=== PATIENT | male | born 1970 | race Caucasian/White ===

== ENCOUNTER 2020-12-14 04:55 | Inpatient (IN) ==
[2020-12-14] MEDS ORDERED: DOCUSATE SODIUM 100 MG CAPSULE PO PRN (07:37)
[2020-12-14] MEDS ORDERED: ONDANSETRON 4 MG/2 ML VIAL IV PRN (07:37)
[2020-12-14] MEDS ORDERED: GLUCAGON 1 MG VIAL IM PRN (07:37)
[2020-12-14] MEDS ORDERED: AZITHROMYCIN INJ 500 MG in SODIUM CHLORIDE 0.9% 250 ML IV ONE (07:37)
[2020-12-14] MEDS ORDERED: MELATONIN 3 MG TABLET PO PRN (07:37)
[2020-12-14] MEDS ORDERED: DEXTROSE 50% 25 GM/50 ML VIAL IV PRN (07:37)
[2020-12-14] MEDS ORDERED: guaiFENesin/DM ER 600-30 MG TABLET PO PRN (07:37)
[2020-12-14] MEDS ORDERED: ACETAMINOPHEN 325 MG TABLET PO PRN (07:37)
[2020-12-14 08:33] LABS: ABG Base Excess -0.4 MMOL/L (-2.5-2.5); ABG HCO3 24.1 MMOL/L (20-26); ABG Oxygen Saturation 97.8 % (95-100); ABG PCO2 30.6 MM HG (35-48); ABG PH 7.467 (7.35-7.45); ABG PO2 99.7 MM HG (80-95); ABG TCO2 18.6 MMOL/L (23-27)
[2020-12-14] MEDS: ENOXAPARIN 40 MG/0.4 ML SYRINGE SUBCUT SCH (09:35)
[2020-12-14] MEDS: CHOLECALCIFEROL 1,000 UNIT TABLET PO SCH (09:36)
[2020-12-14] MEDS: DEXAMETHASONE 4 MG/1 ML VIAL IV SCH (09:36)
[2020-12-14] MEDS: ZINC GLUCONATE 50 MG TABLET PO SCH (09:36)
[2020-12-14] MEDS: CETIRIZINE 10 MG TABLET PO SCH (09:36)
[2020-12-14] MEDS: PANTOPRAZOLE 40 MG TABLET PO SCH (09:36)
[2020-12-14] MEDS: ASCORBIC ACID 500 MG TABLET PO SCH ×2 (09:37→21:07)
[2020-12-14] MEDS: FAMOTIDINE 20 MG TABLET PO SCH ×2 (10:00→21:07)
[2020-12-14 10:22] LABS: Ferritin 2563.9 ng/mL (26-388)
[2020-12-14] MEDS: ALBUTEROL 2.5 MG/3 ML NEB RESP TX SCH ×2 (17:44→19:22)
[2020-12-15] MEDS: ALBUTEROL 2.5 MG/3 ML NEB RESP TX SCH ×2 (03:50→04:02)
[2020-12-15 04:17] LABS: Basophils % 0.4 % (0.0-0.8); Eosinophils % 0.1 % (0.00-10.9); Hematocrit 42.6 VOL% (42.0-52.0); Hemoglobin 14.5 GM/DL (14.0-18.0); Immature Granulocytes % 7.1 %; Immature Granulocytes Absolute 0.74 #; Lymphocytes # 0.7 10*3/uL (1.4-4.0); Lymphocytes % 6.9 % (21.2-54.2); Mean Corpuscular Volume 88.4 FL (87-102); Mean Platelet Volume 9.1 FL (9.6-12.0); Monocytes % 6.9 % (1.7-12.7); Neutrophils % 78.6 % (38.7-73.9); Platelet Count 215 T/CUMM (130-400); Red Blood Count 4.82 MC/CUMM (3.8-5.5); Red Cell Distribution Width 13.3 % (9.3-17.3); White Blood Count 10.4 T/CUMM (4-12)
[2020-12-15 04:55] LABS: Lymphocytes 8 % (20-55); Microcytosis 1+; Segmented Neutrophils 87 % (50-85); Total Cells Counted 100
[2020-12-15 04:56] LABS: Platelet Estimate Normal
[2020-12-15 06:18] LABS: Calcium 8.3 MG/DL (8.5-10.1); Osmolality,Calculated 276.8 MOS/KG (273-304); Potassium 4.3 MMOL/L (3.5-5.1)
[2020-12-15 06:31] LABS: Sedimentation Rate-Westergren 51 MM/HR (0-15)
[2020-12-15] MEDS: PANTOPRAZOLE 40 MG TABLET PO SCH (08:20)
[2020-12-15] MEDS: ENOXAPARIN 40 MG/0.4 ML SYRINGE SUBCUT SCH (08:20)
[2020-12-15] MEDS: ASCORBIC ACID 500 MG TABLET PO SCH ×2 (08:21→21:16)
[2020-12-15] MEDS: CETIRIZINE 10 MG TABLET PO SCH (08:21)
[2020-12-15] MEDS: CHOLECALCIFEROL 1,000 UNIT TABLET PO SCH (08:21)
[2020-12-15] MEDS: FAMOTIDINE 20 MG TABLET PO SCH ×2 (08:21→21:17)
[2020-12-15] MEDS: ZINC GLUCONATE 50 MG TABLET PO SCH (08:22)
[2020-12-15] MEDS: DEXAMETHASONE 4 MG/1 ML VIAL IV SCH (08:22)
[2020-12-15] MEDS: ALBUTEROL INHALER 18 GM INH SCH ×3 (09:16→21:18)
[2020-12-16] MEDS: ALBUTEROL INHALER 18 GM INH SCH ×4 (03:55→20:43)
[2020-12-16 05:37] LABS: Basophils # 0.1 10*3/uL (0.0-0.2); Basophils % 0.4 % (0.0-0.8); Eosinophils % 0.2 % (0.00-10.9); Hematocrit 42.3 VOL% (42.0-52.0); Hemoglobin 14.6 GM/DL (14.0-18.0); Immature Granulocytes % 7.4 %; Immature Granulocytes Absolute 0.93 #; Lymphocytes # 0.9 10*3/uL (1.4-4.0); Lymphocytes % 6.8 % (21.2-54.2); Mean Corpuscular HGB Conc 34.5 GM/DL (32-36); Mean Corpuscular Volume 87.4 FL (87-102); Mean Platelet Volume 9.3 FL (9.6-12.0); Monocytes % 6.2 % (1.7-12.7); Platelet Count 251 T/CUMM (130-400); Red Blood Count 4.84 MC/CUMM (3.8-5.5); Red Cell Distribution Width 13.1 % (9.3-17.3); White Blood Count 12.5 T/CUMM (4-12)
[2020-12-16 06:20] LABS: Calcium 8.3 MG/DL (8.5-10.1); Osmolality,Calculated 281.5 MOS/KG (273-304); Potassium 4.5 MMOL/L (3.5-5.1)
[2020-12-16 06:35] LABS: Band Neutrophils 4 % (0-10); Lymphocytes 9 % (20-55); Microcytosis 1+; Segmented Neutrophils 77 % (50-85); Total Cells Counted 100
[2020-12-16 06:37] LABS: Platelet Estimate Normal
[2020-12-16] MEDS: ENOXAPARIN 40 MG/0.4 ML SYRINGE SUBCUT SCH (09:01)
[2020-12-16] MEDS: ZINC GLUCONATE 50 MG TABLET PO SCH (09:01)
[2020-12-16] MEDS: ASCORBIC ACID 500 MG TABLET PO SCH ×2 (09:01→20:43)
[2020-12-16] MEDS: CHOLECALCIFEROL 1,000 UNIT TABLET PO SCH (09:01)
[2020-12-16] MEDS: FAMOTIDINE 20 MG TABLET PO SCH ×2 (09:01→20:42)
[2020-12-16] MEDS: PANTOPRAZOLE 40 MG TABLET PO SCH (09:02)
[2020-12-16] MEDS: CETIRIZINE 10 MG TABLET PO SCH (09:02)
[2020-12-16] MEDS: DEXAMETHASONE 4 MG/1 ML VIAL IV SCH (09:02)
[2020-12-17] MEDS: ALBUTEROL INHALER 18 GM INH SCH ×4 (03:07→21:15)
[2020-12-17 05:21] LABS: Basophils # 0.1 10*3/uL (0.0-0.2); Basophils % 0.5 % (0.0-0.8); Eosinophils % 0.2 % (0.00-10.9); Hematocrit 45.9 VOL% (42.0-52.0); Hemoglobin 15.7 GM/DL (14.0-18.0); Immature Granulocytes % 8.2 %; Immature Granulocytes Absolute 1.22 #; Lymphocytes # 0.9 10*3/uL (1.4-4.0); Lymphocytes % 5.8 % (21.2-54.2); Mean Corpuscular HGB Conc 34.2 GM/DL (32-36); Mean Corpuscular Volume 86.9 FL (87-102); Mean Platelet Volume 9.3 FL (9.6-12.0); Monocytes % 6.6 % (1.7-12.7); Neutrophils % 78.7 % (38.7-73.9); Platelet Count 244 T/CUMM (130-400); Red Blood Count 5.28 MC/CUMM (3.8-5.5); White Blood Count 14.9 T/CUMM (4-12)
[2020-12-17 05:46] LABS: Lymphocytes 1 % (20-55); Segmented Neutrophils 90 % (50-85); Total Cells Counted 100
[2020-12-17 05:47] LABS: Microcytosis 1+; Platelet Estimate Normal
[2020-12-17 06:00] LABS: Calcium 8.2 MG/DL (8.5-10.1); Osmolality,Calculated 282.5 MOS/KG (273-304); Potassium 4.5 MMOL/L (3.5-5.1)
[2020-12-17] MEDS: DEXAMETHASONE 4 MG/1 ML VIAL IV SCH (09:55)
[2020-12-17] MEDS: ENOXAPARIN 40 MG/0.4 ML SYRINGE SUBCUT SCH (09:55)
[2020-12-17] MEDS: ZINC GLUCONATE 50 MG TABLET PO SCH (09:56)
[2020-12-17] MEDS: ASCORBIC ACID 500 MG TABLET PO SCH ×2 (09:56→21:16)
[2020-12-17] MEDS: FAMOTIDINE 20 MG TABLET PO SCH ×2 (09:56→21:16)
[2020-12-17] MEDS: PANTOPRAZOLE 40 MG TABLET PO SCH (09:56)
[2020-12-17] MEDS: CETIRIZINE 10 MG TABLET PO SCH (09:56)
[2020-12-17] MEDS: CHOLECALCIFEROL 1,000 UNIT TABLET PO SCH (09:56)
[2020-12-18] MEDS: ALBUTEROL INHALER 18 GM INH SCH ×4 (03:09→20:55)
[2020-12-18 07:02] LABS: Basophils # 0.1 10*3/uL (0.0-0.2); Basophils % 0.8 % (0.0-0.8); Eosinophils % 0.2 % (0.00-10.9); Hematocrit 47.4 VOL% (42.0-52.0); Hemoglobin 16.6 GM/DL (14.0-18.0); Immature Granulocytes % 9.5 %; Immature Granulocytes Absolute 1.32 #; Lymphocytes % 7.1 % (21.2-54.2); Mean Platelet Volume 9.3 FL (9.6-12.0); Monocytes % 6.6 % (1.7-12.7); Neutrophils % 75.8 % (38.7-73.9); Platelet Count 261 T/CUMM (130-400); Red Blood Count 5.45 MC/CUMM (3.8-5.5); Red Cell Distribution Width 13.2 % (9.3-17.3); White Blood Count 13.8 T/CUMM (4-12)
[2020-12-18 07:25] LABS: Atypical Lymphocytes Few; Band Neutrophils 1 % (0-10); Eosinophils 1 % (0-10); Lymphocytes 11 % (20-55); Microcytosis 1+; Platelet Estimate Normal; Segmented Neutrophils 82 % (50-85); Total Cells Counted 100
[2020-12-18 07:29] LABS: Calcium 8.8 MG/DL (8.5-10.1); Osmolality,Calculated 282.5 MOS/KG (273-304); Potassium 4.3 MMOL/L (3.5-5.1)
[2020-12-18] MEDS: PANTOPRAZOLE 40 MG TABLET PO SCH (08:48)
[2020-12-18] MEDS: CETIRIZINE 10 MG TABLET PO SCH (08:49)
[2020-12-18] MEDS: FAMOTIDINE 20 MG TABLET PO SCH ×2 (08:49→20:55)
[2020-12-18] MEDS: ZINC GLUCONATE 50 MG TABLET PO SCH (08:49)
[2020-12-18] MEDS: ASCORBIC ACID 500 MG TABLET PO SCH ×2 (08:49→20:55)
[2020-12-18] MEDS: CHOLECALCIFEROL 1,000 UNIT TABLET PO SCH (08:49)
[2020-12-18] MEDS: ENOXAPARIN 40 MG/0.4 ML SYRINGE SUBCUT SCH (08:50)
[2020-12-18] MEDS: DEXAMETHASONE 4 MG/1 ML VIAL IV SCH (09:37)
[2020-12-19] MEDS: ALBUTEROL INHALER 18 GM INH SCH (04:25)
[2020-12-19 06:12] LABS: Basophils # 0.1 10*3/uL (0.0-0.2); Basophils % 0.4 % (0.0-0.8); Eosinophils # 0.1 10*3/uL (0.0-0.87); Eosinophils % 0.4 % (0.00-10.9); Hemoglobin 16.3 GM/DL (14.0-18.0); Immature Granulocytes % 7.2 %; Immature Granulocytes Absolute 0.92 #; Lymphocytes # 1.1 10*3/uL (1.4-4.0); Lymphocytes % 8.7 % (21.2-54.2); Mean Corpuscular HGB Conc 34.7 GM/DL (32-36); Mean Corpuscular Volume 86.4 FL (87-102); Mean Platelet Volume 9.3 FL (9.6-12.0); Monocytes % 6.9 % (1.7-12.7); Neutrophils % 76.4 % (38.7-73.9); Platelet Count 253 T/CUMM (130-400); Red Blood Count 5.44 MC/CUMM (3.8-5.5); Red Cell Distribution Width 13.2 % (9.3-17.3); White Blood Count 12.8 T/CUMM (4-12)
[2020-12-19 06:31] LABS: Calcium 8.6 MG/DL (8.5-10.1); Osmolality,Calculated 282.5 MOS/KG (273-304); Potassium 4.5 MMOL/L (3.5-5.1)
[2020-12-19 06:37] LABS: Anisocytosis Slight; Band Neutrophils 3 % (0-10); Eosinophils 1 % (0-10); Lymphocytes 12 % (20-55); Platelet Estimate Normal; Segmented Neutrophils 78 % (50-85); Total Cells Counted 100
[2020-12-19 07:47] VITALS: BP 122/77
[2020-12-19] MEDS: ASCORBIC ACID 500 MG TABLET PO SCH (08:01)
[2020-12-19] MEDS: CHOLECALCIFEROL 1,000 UNIT TABLET PO SCH (08:01)
[2020-12-19] MEDS: CETIRIZINE 10 MG TABLET PO SCH (08:01)
[2020-12-19] MEDS: ENOXAPARIN 40 MG/0.4 ML SYRINGE SUBCUT SCH (08:01)
[2020-12-19] MEDS: DEXAMETHASONE 4 MG/1 ML VIAL IV SCH (08:01)
[2020-12-19] MEDS: PANTOPRAZOLE 40 MG TABLET PO SCH (08:01)
[2020-12-19] MEDS: FAMOTIDINE 20 MG TABLET PO SCH (08:02)
[2020-12-19] MEDS: ZINC GLUCONATE 50 MG TABLET PO SCH (08:02)
== END 2020-12-19 11:10 | disposition home or self-care (01) | DRG 177 ==
LOC: N.ED 04:55 → SUATTDRO 07:37 → N.EDINP 07:37 → N.2E 08:06
PROVIDERS: ADMIT Phlebology; ATTEND Emergency Medicine